=== PATIENT | female | born 1935 | race Caucasian/White ===

== ENCOUNTER 2023-09-06 21:47 | Emergency (ER) | payer MEDICARE, BC ==
[~2023-09-06] VITALS: Ht 162.6 cm; Wt 65.0 kg
[2023-09-06 22:03] VITALS: BP 146/69; PULSE 63; RESP 14; TEMP 97.8; O2SAT 97
[2023-09-06] MEDS ORDERED: OXYC-145 PO (23:35)
[2023-09-06] MEDS ORDERED: PRED50TA PO (23:35)
[2023-09-06] MEDS ORDERED: oxyCODONE/APAP 5-325mg tablet PO ONE (23:35)
[2023-09-06] MEDS ORDERED: predniSONE 20 mg tablet PO ONE (23:35)
== END 2023-09-07 01:54 | disposition home or self-care (01) ==
LOC: ER 21:47
DX: S29.012A Strain of muscle and tendon of back wall of thorax, initial encounter (principal); Z79.899 Other long term (current) drug therapy; X58.XXXA Exposure to other specified factors, initial encounter; Y93.89 Activity, other specified; Y92.89 Other specified places as the place of occurrence of the external cause; Y99.8 Other external cause status
CPT/HCPCS: 99283; J7512